=== PATIENT | female | born 1980 | race Caucasian/White ===

== ENCOUNTER 2020-09-23 17:05 | Emergency (ER) | payer SELFPAY ==
[2020-09-23 17:18] VITALS: BP 132/74
--- NOTE | 2020-09-23 17:19 | ED Physician Documentation ---
PD HPI UPPER EXT INJURY - Stated complaint Stated Complaint: LT FINGER LAC - Chief complaint Chief Complaint: Laceration - History obtained from History obtained from: Patient - History of Present Illness Location: Left, Finger Type of injury: Laceration (cutting parsley and accidentally cut tip of left little finger with bleeding. It stopped after directly pressure but started bleeding again today when dressing taken off. 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 No: Weakness, Numbness, Swelling Contributing factors: No: Anticoagulated Review of Systems Constitutional: denies: Fever Nose: denies: Rhinorrhea / runny nose, Congestion Throat: denies: Sore throat Respiratory: denies: Cough Neurologic: denies: Focal weakness, Numbness PD PAST MEDICAL HISTORY - Past Medical History Cardiovascular: None Respiratory: None Endocrine/Autoimmune: None - Allergies Allergies/Adverse Reactions: Allergies Allergy/AdvReac Type Severity Reaction Status Date / Time No Known Drug Allergies Allergy Verified 09/23/20 17:17 PD ED PE NORMAL - Vitals Vital signs reviewed: Yes - General General: Alert and oriented X 3, No acute distress, Well developed/nourished - Derm Derm: Normal color, Warm and dry - Extremities Extremities: Other (left little finger tip palmar aspect with small 1 cm flap lac without FB nor bleeding currently.) - Neuro Neuro: No motor deficit, No sensory deficit Results - Vitals Vitals: Oxygen O2 Source Room air PD MEDICAL DECISION MAKING - ED course Complexity details: considered differential (small lac that has stopped bleeding. I feeling it just needs holding closed and will heal okay. Se discussed with her and opted for steristrips and glue. ), d/w patient Departure - Departure Disposition: 01 Home, Self Care Clinical Impression: Finger laceration Qualifiers: Encounter type: initial encounter Finger: little finger Damage to nail status: without damage Foreign body presence: without foreign body Laterality: left Qualified Code(s): S61.217A - Laceration without foreign body of left little finger without damage to nail, initial encounter Condition: Stable Record reviewed to determine appropriate education?: Yes Instructions: ED Laceration Ext Skin Glue Comments: Keep the area clean and dry and allow the Steri-Strips and glue to fall off on their own after several days. This should be sufficient time for the wound to seal underneath. At that point regular wound care with cleaning, soap and water, ointment and Band-Aid are sufficient. Recheck if signs of infection. Tylenol or ibuprofen as needed for pains. Discharge Date/Time: 09/23/20 17:47
== END 2020-09-23 17:47 | disposition home or self-care (01) ==
LOC: ED 17:05
DX: S61.217A Laceration without foreign body of left little finger without damage to nail, initial encounter (principal); W26.0XXA Contact with knife, initial encounter; Y93.G1 Activity, food preparation and clean up; Y92.009 Unspecified place in unspecified non-institutional (private) residence as the place of occurrence of the external cause
CPT/HCPCS: 99281; 99282